=== PATIENT | female | born 1945 | race Two or more races ===

== ENCOUNTER 2017-06-12 07:18 | Outpatient (CLI) | payer OTHER | END 2017-06-12 07:29 | disposition home or self-care (01) | LOC: SONOGRAMA 07:18 → MAMO-SONO 07:45 | DX: E03.9 Hypothyroidism, unspecified (principal); N62 Hypertrophy of breast ==

== ENCOUNTER 2019-04-08 08:13 | Outpatient (CLI) | payer OTHER | END 2019-04-08 08:25 | disposition home or self-care (01) | LOC: LAB 08:13 | DX: I61.8 Other nontraumatic intracerebral hemorrhage (principal); I82.411 Acute embolism and thrombosis of right femoral vein; E78.2 Mixed hyperlipidemia; E72.11 Homocystinuria; E72.12 Methylenetetrahydrofolate reductase deficiency; D68.32 Hemorrhagic disorder due to extrinsic circulating anticoagulants; D68.312 Antiphospholipid antibody with hemorrhagic disorder; D68.1 Hereditary factor XI deficiency; D68.8 Other specified coagulation defects ==

== ENCOUNTER 2019-04-24 09:02 | Outpatient (CLI) | payer OTHER | END 2019-04-24 09:56 | disposition home or self-care (01) | LOC: LAB 09:02 | DX: D50.8 Other iron deficiency anemias (principal); I10 Essential (primary) hypertension; E78.2 Mixed hyperlipidemia; D68.61 Antiphospholipid syndrome; I61.8 Other nontraumatic intracerebral hemorrhage; I82.411 Acute embolism and thrombosis of right femoral vein; D51.8 Other vitamin B12 deficiency anemias; E55.9 Vitamin D deficiency, unspecified; E03.8 Other specified hypothyroidism; R97.0 Elevated carcinoembryonic antigen [CEA] ==

== ENCOUNTER → 2019-04-24 | Outpatient (CLI) | payer OTHER | END | disposition home or self-care (01) | LOC: MRI 08:05 | DX: S06.320A Contusion and laceration of left cerebrum without loss of consciousness, initial encounter (principal) | CPT/HCPCS: 70551 ==

== ENCOUNTER → 2021-04-22 | Outpatient (CLI) | payer OTHER | END | disposition home or self-care (01) | LOC: SONOGRAMA 10:30 | PROVIDERS: ATTEND Internal Medicine Cardiovascular Disease | DX: E03.8 Other specified hypothyroidism (principal) ==